=== PATIENT | male | born 1980 | race African-American/Black ===

== ENCOUNTER 2020-10-22 16:21 | Emergency (ER) | payer MEDICAID, SELFPAY ==
--- NOTE | ~2020-10-22 | CT_ITS ---
EXAMINATION: CT abdomen pelvis w con DATE: 10/22/2020 18:05 INDICATION: Epigastric pain TECHNIQUE: Computed tomography (CT) of the abdomen and pelvis was performed with 100 cc Omnipaque 350 intravenous contrast. The dose-length product was 541.61 mGy-cm. Automated exposure control and iter ative reconstruction technique were employed. COMPARISON: None. FINDINGS: Lung bases are unremarkable. Heart size normal. No significant pleural or pericardial effus ion. Small hiatal hernia. No significant vascular abnormality. No lymphadenopathy. Gallbladder is present. The liver, spleen, pancreas, adrenal glands and kidneys a re unremarkable. 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 Bladder is unremarkable. Prostate gland is mildly enlarged . Mild degenerative changes inferior endplate of L3. No acute fracture or traumatic malalignment. No free air or free fluid. IMPRESSION: 1. No acute abdominal abnormality. 2: Small hiatal hernia. Reviewed, dictated and finalized at location A. R MACHINE
[2020-10-22 16:25] VITALS: BP 148/93; PULSE 80; RESP 18; TEMP 36; O2SAT 100
[2020-10-22 17:20] LABS: Basophils Absolute Auto 0.1 K/mm3 (0.0-0.1); Basophils Percent Auto 0.5 % (0.2-1.2); Eosinophils Percent Auto 0.1 % (0-4.4); Hematocrit 44.7 % (42.0-52.0); Hemoglobin 15.6 g/dL (14.0-18.0); Immature Granulocyte Absolute 0.05 K/mm3 (0.00-0.031); Immature Granulocyte Percent A 0.4 % (0-0.5); Lymphocytes Absolute Auto 1.79 K/mm3 (0.9-3.2); Lymphocytes Percent Auto 13.3 % (18.3-44.2); Mean Corpuscular HGB Conc 34.9 g/dl (32-36); Mean Corpuscular Hemoglobin 30.7 pg (26-34); Mean Platelet Volume 10.1 fl (7.4-10.4); Monocytes Absolute Auto 0.7 K/mm3 (0.1-0.6); Monocytes Percent Auto 5.4 % (2.6-8.5); Neutrophils Absolute Auto 10.8 K/mm3 (1.3-6.7); Neutrophils Percent Auto 80.3 % (45.5-73.1); Platelet Count Result 343 k/mm3 (150-375); Red Blood Count 5.08 M/mm3 (4.6-6.20); Red Cell Distribution Width 11.8 % (11.5-14.5); White Blood Count 13.4 K/mm3 (4.5-10.0)
--- NOTE | 2020-10-22 17:25 | ED.NAVMDI ---
HPI - Nausea/Vomiting/Diarrhea General Chief complaint: Nausea/Vomiting/Diarrhea Stated complaint: i have been throwing up for 2 days Time Seen by Provider: 10/22/20 17:12 History of Present Illness HPI Narrative: Nausea and vomiting for the past 2 days. Initially had diarrhea as well. Associated with abdominal cramping. No fever, CP, SOB. Related Data Allergies Allergy/AdvReac Type Severity Reaction Status Date / Time No Known Allergies Allergy Verified 10/22/20 16:25 Review of Systems Review of Systems: All systems reviewed & are unremarkable except as noted in HPI and below Constitutional: Constitutional: Denies fever(s) and Denies weakness Cardiovascular: Cardiovascular: Denies chest pain Respiratory: Respiratory: Denies dyspnea Gastrointestinal: Gastrointestinal: Reports abdominal pain, Denies bloating, Reports diarrhea, Reports nausea and Reports vomiting Genitourinary: Genitourinary: Reports no additional male genitourinary complaints Musculoskeletal: Musculoskeletal: Reports no additional musculoskeletal complaints Neurologic: Reports system reviewed and no additional complaints, except as documented [facility] Social History Social History Smoking status: Never smoker Exam Const: General: healthy appearing, no acute distress and alert Orientation/consciousness: patient oriented x3 HENMT: Head: normal to inspection Resp: Effort & Inspection: normal respiratory effort Auscultation: clear to auscultation bilaterally, no rales, no rhonchi and no wheezes Cardio: Jugular venous distension: no JVD Rate: regular rate Rhythm: regular rhythm Heart sounds: no murmurs GI: Inspection: non-distended GI Palp: Yes Soft to palpation and No Tenderness to palpation present (GI) Auscultation: normal bowel sounds Skin: General skin exam: normal color Neuro: General: patient oriented x3, moves all extremities, no focal motor deficits and CN's II-XI intact bilaterally Speech: normal speech Gait exam (Neuro): Normal gait present Extrem: General: no edema Psych: Appearance: grossly normal and well kempt Mental Status: mental status grossly normal Affect: Anxious affect present Course Vital Signs Vital signs: Vital Signs Temperature 36.0 C L 10/22/20 16:25 Pulse Rate 80 10/22/20 16:25 Respiratory Rate 18 10/22/20 16:25 Blood Pressure 148/93 H 03/13/21 16:25 Pulse Oximetry 100 10/22/20 16:25 Temperature 36.0 C L 10/22/20 16:25 Pulse Rate 69 10/22/20 19:15 Respiratory Rate 19 10/22/20 19:15 Blood Pressure 138/61 10/22/20 19:15 Pulse Oximetry 97 10/22/20 19:15 MDM - Nausea/Vomiting/Diarrhea MDM Narrative Medical decision making narrative: Feeling better. Tolerating PO. Work up reassuring. Differential Diagnosis Differential diagnosis: Likely food poisoning, gastroenteritis and dehydration Medical Records Attestation: I reviewed the patient's medical records. Lab Data Attestation: I reviewed the patient's lab results. Result diagrams: 10/22/20 17:13 10/22/20 17:13 Labs: Lab Results 10/22/20 10/22/20 10/22/20 Range/Units 17:13 17:13 18:25 WBC 13.4 H (4.5-10.0) K/mm3 RBC 5.08 (4.6-6.20) M/mm3 Hgb 15.6 (14.0-18.0) g/dL Hct 44.7 (42.0-52.0) % MCV 88.0 (80-100) fl MCH 30.7 (26-34) pg MCHC 34.9 (32-36) g/dl RDW 11.8 (11.5-14.5) % Plt Count 343 (150-375) k/mm3 MPV 10.1 (7.4-10.4) fl Immature Gran % (Auto) 0.4 (0-0.5) % Neut % (Auto) 80.3 H (45.5-73.1) % Lymph % (Auto) 13.3 L (18.3-44.2) % [facility] % (Auto) 5.4 (2.6-8.5) % Eos % (Auto) 0.1 (0-4.4) % Baso % (Auto) 0.5 (0.2-1.2) % Lymph # (Auto) 1.79 (0.9-3.2) K/mm3 [facility] # (Auto) 0.7 H (0.1-0.6) K/mm3 Eos # (Auto) 0.0 (0-0.3) K/mm3 Baso # (Auto) 0.1 (0.0-0.1) K/mm3 Abs Immat Gran (auto) 0.05 H (0.00-0.031) K/mm3 Absolute Neuts (aut
[2020-10-22 17:32] LABS: Alanine Aminotransferase 18 U/L (4-50); Albumin Level 4.8 g/dL (3.5-5.1); Alkaline Phosphatase 70 U/L (38-126); Anion Gap 8 mmol/L (8-16); Aspartate Amino Transferase 30 U/L (17-59); Blood Urea Nitrogen 15 mg/dL (9-20); Calcium 9.8 mg/dL (8.4-10.2); Carbon Dioxide 26 mmol/L (22-30); Chloride 104 mmol/L (98-107); Estimated CRCL calculation 91 ml/min; Estimated Glomerular Filt Rate > 60; Glucose 108 mg/dL (75-110); Lipase 48 U/L (23-300); Potassium 3.6 mmol/L (3.4-5.0); Sodium 138 mmol/L (137-145)
[2020-10-22] MEDS: SODIUM CHLORIDE 0.9% IV 1,000 ML 999 ML IV CONT (17:39)
[2020-10-22] MEDS: ONDANSETRON INJ 4 MG/2 ML VIAL IV PUSH (17:39)
[2020-10-22 17:47] VITALS: BP 142/70; PULSE 88; RESP 12; O2SAT 99
--- NOTE | 2020-10-22 18:05 | PC.NURSE ---
Pt. has an episode of vomiting in CT scan. ERP aware. See MAR for orders. Pt. on director of institutional giving.
[2020-10-22] MEDS: HALOPERIDOL LACTATE 5 MG/ML VIAL IV PUSH (18:15)
[2020-10-22 18:39] LABS: Add Urine Microscopic? YES; Appearance Urine Clear (Clear); Bacteria Urine Trace /hpf; Bilirubin Urine Negative (Negative); Blood Urine Negative (Negative); Color Urine Yellow (Yellow); Glucose Urine UA Negative (Negative); Ketones Urine 2+ mg/dL (Negative); Leukocyte Esterase Ur 1+ LEU/UL (Negative); Mucus Urine Rare /lpf; Nitrate Urine Negative (Negative); Protein Urine 2+ mg/dL (Negative); Squamous Epithelial Cell Urine Rare /hpf (Few)
[2020-10-22 18:40] LABS: Specific Grav Ur 1.059 (1.001-1.035)
[2020-10-22 18:45] VITALS: BP 140/64; PULSE 74; RESP 14; O2SAT 99
[2020-10-22] MEDS: PANTOPRAZOLE SODIUM IV 40 MG VIAL IV PUSH (18:45)
--- NOTE | 2020-10-22 18:46 | PC.NURSE ---
Pt. nausea improved after haldol administration. Pt. given water for PO challenge.
[2020-10-22 19:15] VITALS: BP 138/61; PULSE 69; RESP 19; O2SAT 97
--- NOTE | 2020-11-04 07:57 | PC.NURSE ---
LATE ENTRY This note is being entered to document information to the patient's record. The following information was omitted on [10/22/20], by [Magdiel Corbett RN. Pt. NS stop time 1900].
== END 2020-10-22 19:15 | disposition home or self-care (01) ==
PROVIDERS: Physician Assistant; Emergency Provider Emergency Medicine
DX: R11.2 Nausea with vomiting, unspecified (principal); K44.9 Diaphragmatic hernia without obstruction or gangrene
CPT/HCPCS: 36415; 74177; 80053; 81001; 83690; 85025; 96361; 96374; 96375; 99284; C9113; J1630; J2405; J7030; Q9967

== ENCOUNTER 2021-02-08 17:25 | Emergency (ER) | payer OTHER, SELFPAY ==
--- NOTE | 2021-02-08 17:45 | ED.MALEGU ---
HPI - Male Genitourinary General Chief complaint: Urogenital-Male Stated complaint: Std testing Time Seen by Provider: 02/08/21 17:45 Source: patient Mode of arrival: ambulatory Limitations: no limitations History of Present Illness HPI Narrative: Raudel Guajardo is a 40 yo male with a PMH of GERD who was sent here by his PCP to get treatment for gonorrhea after patient presented in his office with penile discharge late this afternoon. Nurse spoke with PCP and confirmed that physician wanted him to have Rocephin injection Related Data Allergies Allergy/AdvReac Type Severity Reaction Status Date / Time No Known Allergies Allergy Verified 10/22/20 16:25 Review of Systems Review of Systems: Narrative: CONSTITUTIONAL: Denies fever, chills, sweats. EYES: Denies visual changes, redness, discharge. ENT: Denies rhinorrhea, congestion, sore throat, otalgia. CARDIOVASCULAR: Denies chest pain, palpitations, edema. RESPIRATORY: Denies dyspnea, wheezing, cough GASTROINTESTINAL: Denies abdominal pain, nausea, vomiting, diarrhea. GENITOURINARY: Denies dysuria, hematuria, abnormal discharge. Patient states his penile discharge SKIN: Denies rash or itching. NEUROLOGIC: Denies numbness, or focal weakness. PSYCHIATRIC: Denies anxiety or depression. [facility] Past Medical History Medical History GERD (gastroesophageal reflux disease) Social History Social History Smoking status: Never smoker Comments At time of signature, I agree with nursing past medical, surgical, social and family history. There is no relevant family history pertinent to the presenting complaint. Exam Narrative: Exam Narrative: GENERAL: This is a well-nourished, well-developed patient, in no distress. HEAD: normocephalic, atraumatic. EYES: . Sclera clear/white. Vision is grossly intact. EARS: External ears normal, . Hearing grossly intact. NOSE: External nose normal without nasal discharge, nares without redness, no rhinorrhea. THROAT: Mucous membranes moist, NECK: Neck supple, CARDIOVASCULAR: Regular rate and rhythm without murmurs, gallops, or rubs. RESPIRATORY: Clear to auscultation. Breath sounds equal bilaterally. No wheezes, rales, or rhonchi. GASTROINTESTINAL: Abdomen soft, SKIN: warm, intact NEURO: awake, alert, and oriented to person, place and time. There were no obvious focal neurologic abnormalities. Steady gait EXTREMITIES: Normal range of motion. BACK: Nontender without deformity Course Course Emergency Course: Patient here for Rocephin after being seen at PCPs office for penile discharge today Patient given Rocephin 500 mg IM and is to come back to get ordered labs from physician at [facility] and supervisor picking crew medication pharmacy Vital Signs Vital signs: Vital Signs Temperature 98.7 F 02/08/21 17:48 Pulse Rate 72 02/08/21 17:48 Respiratory Rate 16 02/08/21 17:48 Blood Pressure 135/68 02/08/21 17:48 Pulse Oximetry 100 02/08/21 17:48 Temperature 98.7 F 02/08/21 17:48 Pulse Rate 72 02/08/21 17:48 Respiratory Rate 16 02/08/21 17:48 Blood Pressure 135/68 02/08/21 17:48 Pulse Oximetry 100 02/08/21 17:48 MDM - Male Genitourinary Differential Diagnosis Differential diagnosis: Likely urinary tract infection, urethritis and other (STD exposure vs penile discharge) Critical Care Time Critical Care Time Critical Care Time: No Discharge Plan Discharge Clinical Impression: Abnormal penile discharge Patient Disposition: Home, Self-Care Condition: Stable Instructions: Sexually Transmitted Diseases (ED) Additional Instructions: Use safe sex practice; avoid sex for 7 days for medications to work Prescriptions: No Action ondansetron HCl [Zofran] 4 mg tablet 4 mg PO Q6H PRN (Reason: nausea and vomiting) Qty: 10 RF: 0 pantoprazole [Protonix] 40 mg tablet,delayed release (DR/EC)
[2021-02-08 17:48] VITALS: BP 135/68; PULSE 72; RESP 16; TEMP 37.1; O2SAT 100
[2021-02-08] MEDS: LIDOCAINE HCL 1% LOCAL INJ 20 ML VIAL 2.1 ML IM (18:00)
[2021-02-08] MEDS: cefTRIAXone 250 MG VIAL 500 MG IM (18:00)
== END 2021-02-08 18:29 | disposition home or self-care (01) ==
PROVIDERS: Emergency Provider Nurse Practitioner; PCP Emergency Medicine
DX: R36.9 Urethral discharge, unspecified (principal)
CPT/HCPCS: 96372; 99213; G0463; J0696

== ENCOUNTER 2021-06-21 15:23 | Emergency (ER) | payer OTHER, SELFPAY ==
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
[2021-06-21 15:38] VITALS: BP 126/70; PULSE 88; RESP 16; TEMP 36.7; O2SAT 100
[2021-06-21 15:39] VITALS: BP 126/70; PULSE 88; RESP 16; TEMP 36.7; O2SAT 100
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
== END 2021-06-21 16:15 | disposition home or self-care (01) ==
PROVIDERS: Emergency Provider Nurse Practitioner Family
DX: S83.92XA Sprain of unspecified site of left knee, initial encounter (principal); V49.9XXA Car occupant (driver) (passenger) injured in unspecified traffic accident, initial encounter; K21.9 Gastro-esophageal reflux disease without esophagitis
CPT/HCPCS: 73564; 99213; G0463

== ENCOUNTER 2023-05-09 16:41 | Emergency (ER) | payer OTHER, SELFPAY ==
[2023-05-09 16:43] VITALS: BP 143/92; PULSE 88; RESP 20; TEMP 36.5; O2SAT 100
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
== END 2023-05-09 18:15 | disposition left against medical advice (07) ==
DX: R11.2 Nausea with vomiting, unspecified (principal)
CPT/HCPCS: 99199